=== PATIENT | male | born 1945 | race Caucasian/White ===

== ENCOUNTER → 2024-03-01 | Outpatient (CLI) | payer MEDICARE, SELFPAY ==
[2024-03-01 15:57] LABS: Hepatitis B Surface Antibody Non-Reactive
[2024-03-03 16:10] LABS: HEPATITIS B SURFACE AG Negative (Negative); Hep C Antibodies Non Reactive (Non Reactive); Hepatitis A AB, Total Negative (Negative); Hepatitis A IgM Antibody Negative (Negative); Hepatitis B Core AB IgM Negative (Negative); QNTFERON TB Mitogen Value > 10.00 IU/mL (.); QNTFERON TB Nil Value 0 IU/mL (.); QNTFERON TB1+ Ag Value 0.01 IU/mL (.); QNTFERON TB2+ Ag Value 0 IU/mL (.); QNTIFERON TB Positive Criteria Negative (Negative)
== END | disposition home or self-care (01) ==
PROVIDERS: Referring Provider Dermatology Pediatric Dermatology; Visit Provider Dermatology Pediatric Dermatology
DX: L20.89 Other atopic dermatitis (principal); Z79.899 Other long term (current) drug therapy
CPT/HCPCS: 36415; 80074; 86480; 86706; 86708

== ENCOUNTER → 2024-06-18 | Outpatient (CLI) | payer MEDICARE, SELFPAY ==
[2024-06-18 11:00] LABS: Absolute Lymphocyte Count 1.36 X10^3/uL (0.83-4.51); Absolute Neutrophil Count 12.4 X10^3/uL (2.0-7.7); Basophil# 0.02 X10^3/uL; Basophil% 0.1 % (0-1); Eosinophils% 1.4 % (0-5); Hematocrit 41.1 % (40-54); Hemoglobin 12.8 g/dL (13.0-16.5); Lymphocyte # 1.36 X10^3/ul (0.83-4.51); Lymphocyte % 9.3 % (19-41); Mean Corp Hgb Conc 31.1 g/dL (32-36); Mean Corpuscular Hgb 25.8 pg (27.0-32.0); Mean Corpuscular Volume 82.9 fL (80-94); Mean Platelet Vol. 9.4 fl (6.2-12.0); Monocyte# 0.46 X10^3/uL; Monocyte% 3.2 % (0-10); NRBC Flagged by Analyzer 0 % (0-5); Neutrophil # 12.42 X10^3/uL (2.7-7.7); Neutrophil % 85.3 % (47-70); Platelet Count 356 K/mm3 (150-450); RBC Distribution Width CV 15.3 % (11.6-14.6); RBC Distribution Width SD 45.7 fl (35.1-43.9); Red Blood Count 4.96 M/mm3 (4.6-6.2); White Blood Count 14.6 K/mm3 (4.4-11.0)
[2024-06-18 11:51] LABS: ALB/GLOB Ratio 0.2 RATIO (0.9-2.4); AST(SGOT) 18 U/L (<=37); Alanine Aminotransfer ALT/SGPT 21 U/L (<=46); Albumin, Serum 1.2 g/dL (3.4-4.8); Alkaline Phosphatase 30 U/L (40-129); Anion Gap 14 (5-15); BUN 17 mg/dL (4-19); Calcium,Total 9.6 mg/dL (7.6-11.0); Carbon Dioxide 24.5 mmol/L (21.0-32.0); Chloride 101 mmol/L (98-108); Cholesterol 110 mg/dL (<=200); Creatinine, Serum 1.15 mg/dL (0.70-1.20); EST Glomerular Filtration Rate 66 (>60); Globulin 6.9 g/dL (2.2-4.2); Glucose 109 mg/dL (70-99); High Density Lipoprotein 40 mg/dL; Low Density Lipoprotein Calc. 57 mg/dL; Potassium 4.3 mmol/L (3.3-5.1); Protein, Total 8.1 g/dL (5.9-8.4); Sodium Level 139 mmol/L (133-145); Total Bilirubin 0.22 mg/dL (0.00-1.30); Triglycerides 67 mg/dL; Very Low Density Lipoprotein 13 mg/dL (5-40); cholesterol:hdl ratio screen 2.77
[2024-06-19 08:08] LABS: LDL, Direct 120295 62 mg/dL (0-99)
== END | disposition home or self-care (01) ==
LOC: MTLAB 09:23
PROVIDERS: Referring Provider Dermatology Pediatric Dermatology; Visit Provider Dermatology Pediatric Dermatology
DX: L20.89 Other atopic dermatitis (principal); L50.1 Idiopathic urticaria; Z79.899 Other long term (current) drug therapy; Z79.622 Long term (current) use of Janus kinase inhibitor
CPT/HCPCS: 36415; 80053; 80061; 83721; 85025